=== PATIENT | male | born 1930 | race Caucasian/White ===

== ENCOUNTER 2016-12-26 08:19 | Inpatient (IN) ==
[2016-12-26 09:38] LABS: Basophils % 0.3 % (0.0-0.8); Eosinophils # 0.1 10*3/uL (0.0-0.87); Eosinophils % 1.3 % (0.00-10.9); Hematocrit 39.6 VOL% (42.0-52.0); Hemoglobin 13.9 GM/DL (14.0-18.0); Immature Granulocytes % 0.2 %; Immature Granulocytes Absolute 0.01 #; Lymphocytes # 1.9 10*3/uL (1.4-4.0); Mean Corpuscular HGB Conc 35.1 GM/DL (32-36); Mean Corpuscular Hemoglobin 33 PG (27-34); Mean Corpuscular Volume 92.5 FL (87-102); Mean Platelet Volume 9.7 FL (9.6-12.0); Monocytes # 0.5 10*3/uL (0.11-0.8); Monocytes % 8.6 % (1.7-12.7); Neutrophils # 3.6 10*3/uL (1.4-7.4); Neutrophils % 58.6 % (38.7-73.9); Platelet Count 229 T/CUMM (130-400); Red Blood Count 4.28 MC/CUMM (3.8-5.5); Red Cell Distribution Width 12.6 % (9.3-17.3); White Blood Count 6.1 T/CUMM (4-12)
--- NOTE | 2016-12-26 09:39 | XRay Report ---
XR chest 1V portable Indication: Abnormal breath sounds. Chest one view: Comparison 07/04/2015. The heart size and mediastinal contour are normal. The lungs and pleural spaces are clear. Bones are unremarkable. Impression: Negative chest. PROCEDURE INTERPRETED AT [facility] DEPARTMENT OF RADIOLOGY Final Report Signed by: Vel Schwab M.D.
[2016-12-26 09:54] LABS: Apearance,Urine CLEAR (Clear); Bacteria,Urine Occasional /HPF (Few); Bilirubin,Urine Negative (Negative); Blood, Urine Negative (Negative); Glucose,Urine (UA) Negative (Negative); Ketones,Urine Negative (Negative); Mucus,Urine Occasional /LPF (Occasional); Nitrite,Urine Negative (Negative); Protein,Urine Negative; RBC,Urine <1 /HPF (0-4); Squamous Epithelial Cell,Urine Occasional /HPF (0-10); Urine Color Yellow (Yellow); Urine Specific Gravity 1.019 (1.001-1.035); Urine Urobilinogen < 2.0 EU/DL (0.2-1.0); WBC,Urine <1 /HPF (0-6)
[2016-12-26 10:00] LABS: Albumin 4.1 G/DL (3.4-5.0); Bilirubin,Total 0.6 MG/DL (0.2-1.0); Calcium 9.7 MG/DL (8.5-10.1); Lactic Acid 1.2 MMOL/L (0.4-2.0); Osmolality,Calculated 288.3 MOS/KG (273-304); Potassium 3.5 MMOL/L (3.5-5.1); Total Protein 7.6 G/DL (6.4-8.3)
[2016-12-26] MEDS ORDERED: SODIUM CHLORIDE 0.9% 1,000 ML IV STA (10:01)
--- NOTE | 2016-12-26 11:14 | CT Report ---
CT abdomen pelvis wo con Indication: Abdominal pain. CT ABDOMEN AND PELVIS WITHOUT CONTRAST DLP: 323 mGy*cm. One or more of the following dose reduction techniques was used: Automated exposure control, adjustment of the mA and/or kV according the patient size, or use of iterative reconstruction techniques. Comparison: 03/17/2016. Technique: Axial noncontrast CT images of the abdomen and pelvis were obtained. Abdomen: No urolithiasis or obstructive uropathy of either kidney. Unenhanced renal parenchyma is unremarkable. Unenhanced liver, gallbladder, pancreas, adrenal glands and spleen are within normal limits. Calcified atheromatous disease is present. Normal heart size. Interstitial scarring of the lung bases noted. Mild bowel wall thickening of central small bowel is noted. No bowel obstruction. Stool and gas is shown the colon. No free fluid, free air or lymphadenopathy. Pelvis: Appendix not identified. No right lower quadrant inflammation. Blue catheter in the bladder noted. Prostate is enlarged measuring 63 mm diameter. Rectosigmoid colon is unremarkable. Left TY results in beam hardening artifact through the pelvis. No infiltrative bone lesions. Impression: 1. Mildly prominent small bowel left mid abdomen, likely gastroenteritis. No obstruction. 2. Bibasilar interstitial scarring. Calcified atheromatous disease. 3. Blue catheter. PROCEDURE INTERPRETED AT [facility] DEPARTMENT OF RADIOLOGY Final Report Signed by: Vel Schwab M.D.
--- NOTE | 2016-12-26 11:43 | Emergency Department Note ---
IBk Gwan, am scribing for, and in the presence of, Estefany De Leon DO 08:59 . IMoises Debra, DO, personally performed the services described in this documentation, ascribed by Tia Bourgeois in my presence, and it is both accurate and complete 957 . Arrival - Arrival Chief Complaint: Abdominal / Flank Pain Stated Complaint: abd pain ED Nursing Triage Note: per ems reports pt having abd pain and has not had a bm in 4-5 days. Mode of Arrival: Stretcher Limitations: No Limitations Source: Patient, Significant other (), Old Records Reviewed, RN Notes Reviewed Time Seen by Provider: 12/26/16 08:38 - History of Present Illness HPI Narrative: Patient is a 86 y/o male who presents to the ED via EMS with a c/o abd pain with an onset last night. Patient stated that patient has been awake all night c/o "hurting all over". She continued to note that she had a difficult time getting the patient to sit up or to respond. This prompted their visit to the ED for further evaluation. confirmed that patient has been to [facility] ED in [place] due to dehydration and UTI. Patient is followed by Dr. Peraza. denies that pt has had any fever or chills. During exam, patient was awake and responsive to verbal stimuli. No other problems/complaints reported in ED. Onset (ago): day(s) Consistency: constant Severity: moderate Allergies/Adverse Reactions: Allergies Allergy/AdvReac Type Severity Reaction Status Date / Time celecoxib [From Celebrex] AdvReac Nausea Verified 03/26/16 08:55 Home Medications: Home Medications Medication Instructions Recorded Confirmed Type Finasteride [Proscar] 5 mg PO DAILY 12/24/14 04/20/16 History Levothyroxine Tab [Synthroid Tab] 50 mcg PO DAILY 12/24/14 04/20/16 History Multivit-Min/FA/Lycopen/Lutein 1 each PO DAILY 12/24/14 04/20/16 History [Centrum Silver Tablet] Pantoprazole Tab [Protonix Tab] 40 mg PO DAILY 12/24/14 04/20/16 History Tamsulosin [Flomax] 0.4 mg PO DAILY 12/24/14 04/20/16 History hydroCHLOROthiazide 12.5 mg PO DAILY 12/24/14 04/20/16 History [Hydrochlorothiazide] Aspirin [Ecotrin] 325 mg PO DAILY 03/17/16 04/20/16 History Sulfameth/Trimeth 800-160 Tab 1 tablet PO BID #14 tablet 04/20/16 Rx [Bactrim Ds Tab] Review of System - Review of System 12 point system: reviewed and no additional remarkable complaints except as stated - Review of System Constitutional: Present: as per HPI. Absent: chills, fever Gastrointestinal: Present: as per HPI, abdominal pain. Absent: nausea, vomiting , diarrhea Musculoskeletal: Absent: arm pain, lower back pain, leg pain Medical,Surgical,& Family Hx - Medical History Cardio: History of: Hypertension No history of: Pacemaker Neurology: History of: Cerebrovascular Accident, TIA Endocrine: History of: Thyroid Disorder (Hypothryroid) Gastrointestinal: History of: GERD - Surgical History Orthopedic Surgeries: Surgical HX of;: Total Hip Replacement (left post fall) - Family History Family History: Reports;: Family Heart Disease - Social History Smoking Status: Never smoker Exam Vital Signs: Vital Signs Temperature 98.2 F 12/26/16 08:53 Pulse Rate 84 12/26/16 10:15 Respiratory Rate 18 12/26/16 10:15 Blood Pressure 160/92 12/26/16 10:15 O2 Sat by Pulse Oximetry 97 12/26/16 10:15 - General General appearance: alert, in no apparent distress - Head Head exam: Present: atraumatic, normocephalic - Eye Eye exam: Present: normal appearance, PERRL - ENT ENT exam: Present: normal oropharynx, mucous membranes dry, TM's normal bilaterally - Neck Neck exam: Present: full ROM, trachea midline. Absent: tenderness - Chest Chest inspection: Present: symmetric chest wall rise. Absent: tenderness - Respiratory Respiratory exam: Present: normal lung sounds bilaterally. Absent: respiratory distress - Cardiovascular Cardiovascular exam: Present: regular rate, normal rhythm, normal heart sounds. Absent: murmur - Abdominal Exam Abdominal exam: Present: soft, tenderness (diffusely tender), rebound (mild rebound) - Extremities Exam Extremities exam: Present: full ROM. Absent: tenderness - Back Exam Back exam: Present: full ROM. Absent: tenderness - Neurological Exam Neurological exam: Present: alert - Skin Skin exam: Present: warm, dry, intact Course Course Narrative: spoke with Dr King who will see pt in hospital and agrees to admission to DR Peraza. pt is stable at this time and has no complaints. son is in room and states that he had a hard time with motor strength of his left arm several days ago. has no deficits at this time but will get ct head before pt goes to room. pt is pain free unless his abdomen is touched. Results - Labs CBC & BMP: 12/26/16 09:29 12/26/16 09:29 Lab Results: I have reviewed the patients labs Labs: Laboratory Tests 12/26/16 12/26/16 12/26/16 09:29 09:29 09:29 WBC 6.1 RBC 4.28 Hgb 13.9 L Hct 39.6 L Plt Count 229 Sodium 141 Potassium 3.5 Chloride 110 H BUN 36 H Creatinine 1.60 H BUN/Creatinine Ratio 22.00 H Urine pH 5.0 Ur Specific [place] 1.019 Urine Urobilinogen < 2.0 H Urine RBC <1 Urine WBC <1 - Diagnostic Findings Procedure: Chest x-ray: report reviewed by me (Negative Chest) Disposition Clinical Impression: Abdominal pain Case discussed with: patient, patient's family Disposition: Still a Patient Condition: Stable Time of Disposition: 11:35
[2016-12-26] MEDS ORDERED: ONDANSETRON 4 MG/2 ML VIAL IV PRN (11:44)
--- NOTE | 2016-12-26 12:27 | CT Report ---
CT head/brain wo con Indication: Confusion. CT BRAIN WITHOUT CONTRAST DLP: 998 mGy*cm. One or more of the following dose reduction techniques was used: Automated exposure control, adjustment of the mA and/or kV according the patient size, or use of iterative reconstruction techniques. Comparison: 07/04/2015. Date of admission: 12/26/2016. Technique: Axial noncontrast CT images of the brain were obtained. Findings: No acute hemorrhage, mass or mass effect. Small left basal ganglia hemorrhage on the prior examination has resolved. Generalized atrophy and patchy periventricular white matter hypodensity is present throughout both convexities. Cortical marroquin-white junction and structures of the basal ganglia are well-defined. No bone lesions are shown. Internal auditory canals are symmetric. Visualized sinuses and mastoid air cells are clear. Impression: No acute intracranial pathology. 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 PROCEDURE INTERPRETED AT [facility] DEPARTMENT OF RADIOLOGY Final Report Signed by: Vel Schwab M.D.
--- NOTE | 2016-12-26 13:27 | General Surgery Consult Note ---
Assessment and Plan - Time spent with patient Time spent with patient: Greater than 30 minutes (1) Abdominal pain Status: Acute Assessment and plan: The etiology of his pain is unclear. I do not on exam or history or on imaging really see an acute surgical problem. His CT scan is limited by the inability to give IV contrast because of his dehydration. In looking at the films he does not have a large amount of calcification involving his mesenteric vessels however. He does not have an elevated lactic acid level. He does not appear particularly ill and is not tachycardic. I would recommend resuscitation and rehydration and I will follow along with you. The family has expressively stated that they do not want surgical intervention even if it becomes necessary. I have explained that at this point I am not looking at surgery will be trying to help see if we can come up with a cause for his abdominal pain and general decline. If a surgical problem is found then we would certainly discuss this. Current Visit: Yes Qualifiers: Abdominal location: lower abdomen, unspecified Qualified Code(s): R10.30 - Lower abdominal pain, unspecified History of Present Illness Chief complaint: Abdominal pain History of present illness: Mr. Dyer is a 86 year old male Who for a couple of weeks his had vague poorly localized abdominal pain. His family says that his symptoms really go back several months with frequent urinary tract infections and dehydration resulting in multiple visits to the [facility] emergency room. He is not a good historian and the family says he is more confused today than usual. He puts his finger when asked where his abdomen hurts right over the suprapubic area. He denies dysuria. They have not noticed fever or chills. The pain they say is moderate in severity and intermittent and has been going on for a couple of weeks. He has not had nausea or vomiting and he actually ate normally yesterday. He says that overall his appetite is decreased over the last several months. They report less urine output than usual. Home Medications Medication Instructions Recorded Confirmed Type Finasteride [Proscar] 5 mg PO DAILY 12/24/14 12/26/16 History Levothyroxine Tab [Synthroid Tab] 50 mcg PO DAILY 12/24/14 12/26/16 History Multivit-Min/FA/Lycopen/Lutein 1 each PO DAILY 12/24/14 12/26/16 History [Centrum Silver Tablet] Pantoprazole Tab [Protonix Tab] 40 mg PO DAILY 12/24/14 12/26/16 History Tamsulosin [Flomax] 0.4 mg PO DAILY 12/24/14 04/20/16 History hydroCHLOROthiazide 12.5 mg PO DAILY 12/24/14 12/26/16 History [Hydrochlorothiazide] Aspirin [Ecotrin] 325 mg PO DAILY 03/17/16 12/26/16 History Sulfameth/Trimeth 800-160 Tab 1 tablet PO BID #14 tablet 04/20/16 Rx [Bactrim Ds Tab] Allergies Allergy/AdvReac Type Severity Reaction Status Date / Time celecoxib [From Celebrex] AdvReac Nausea Verified 03/26/16 08:55 Medical,Surgical,& Family Hx - Medical History Cardio: History of: Hypertension No history of: Pacemaker Neurology: History of: Cerebrovascular Accident, TIA Endocrine: History of: Thyroid Disorder (Hypothryroid) Gastrointestinal: History of: GERD - Surgical History Abdominal Surgeries: Surgical HX of: Hernia Repair Orthopedic Surgeries: Surgical HX of;: Total Hip Replacement (left post fall) - Family History Family History: Reports;: Family Heart Disease - Social History Smoking Status: Never smoker Frequency of Alcohol Use: None - Constitutional Constitutional: Present: anorexia, weight loss. Absent: chills, fever(s) - EENT Nose, mouth and throat: Absent: hoarseness - Cardiovascular Cardiovascular: Absent: chest pain at rest, chest pain with activity, dyspnea, dyspnea on exertion, syncope - Respiratory Respiratory: Absent: dyspnea, hemoptysis, dyspnea on exertion - Gastrointestinal Gastrointestinal: Present: abdominal pain. Absent: bloating, coffee ground emesis, cramping, hematemesis, hematochezia, melena, nausea, vomiting, jaundice - Genitourinary Genitourinary: Present: dysuria. Absent: hematuria - Musculoskeletal Musculoskeletal: Present: back pain - Neurological Neurological: Present: memory loss. Absent: focal weakness, syncope - Endocrine Endocrine: Absent: polyuria Hematologic/Lymphatic: Absent: easy bleeding, easy bruising Exam - Constitutional Vitals: Period Temp Pulse Resp BP Sys/Jeter Pulse Ox Last 24 Hr 98.2 F-98.2 F 76-88 18-20 129-167/80-98 96-98 General appearance: no acute distress - Head Head exam: Present: normocephalic - Eye Eye exam: Absent: scleral icterus - ENT Mouth exam: Present: normal voice - Neck Neck exam: Present: trachea midline. Absent: lymphadenopathy, tenderness, thyromegaly - Respiratory Respiratory exam: Present: clear to auscultation bilaterally. Absent: accessory muscle use - Cardiovascular Cardiovascular exam: Present: RRR - GI/Abdominal GI/Abdominal exam: Present: normal bowel sounds, tenderness (Mild in the suprapubic area), soft. Absent: distended, guarding, mass, Sierra's sign, rebound - Neurological Exam Neurological exam: Present: alert. Absent: oriented X3, motor sensory deficit Speech: Present: normal - Skin Skin exam: Present: normal color Results - Labs CBC & BMP: 12/26/16 09:29 12/26/16 09:29 Lab Results: I have reviewed the past 24 hour labs - Diagnostic Findings Procedure: CT Abdomen and Pelvis: image reviewed by me, report reviewed by me, CT: report reviewed by me
[2016-12-26] MEDS: MORPHINE 2 MG/1 ML SYRINGE IV PRN (14:04)
--- NOTE | 2016-12-26 17:39 | Family Practice History&Phys ---
Assessment and Plan (1) Failure to thrive Status: Acute Assessment and plan: 12/26/2016: Patient's intake certainly sounds like it is a problem for him. Family states he is eating but very little. His nutritional depletion may be contributing to his present state. Current Visit: Yes (2) Dementia Status: Acute Assessment and plan: 12/26/2016: Patient's altered mental status is probably multifactorial. Current Visit: Yes (3) Abdominal pain Status: Acute Assessment and plan: 12/26/2016: Laboratory studies and CT were unremarkable. Surgical consultation was also obtained. Period of observation is warranted. Current Visit: Yes Qualifiers: Abdominal location: lower abdomen, unspecified Qualified Code(s): R10.30 - Lower abdominal pain, unspecified History of Present Illness Chief complaint: Abdominal pain and back pain History of present illness: Mr. Dyer is a 86 year old male Patient is a 86-year-old white male who according the family is been in a steady state of decline now for several weeks to months. He is not eating well and is not getting up and getting around. His is his primary caregiver when she certainly been very busy trying to take care of him. Patient states he has severe back pain and also complains of lower abdominal discomfort. Patient did have a CT scan of the abdomen and laboratory studies in the emergency room all of which revealed no significant abnormality. Patient complains bitterly of back pain with any movement. The views of his lumbosacral spine on the CT scan revealed no significant abnormality. Patient has had prior CVA involving his left side and the family has noticed little neglect to his left since he has gotten ill. Has not had fever, chills, nausea or vomiting. His appetite is declining. According to family he is just getting more and more feeble with each passing day. Home Medications Medication Instructions Recorded Confirmed Type Finasteride [Proscar] 5 mg PO DAILY 12/24/14 12/26/16 History Levothyroxine Tab [Synthroid Tab] 50 mcg PO DAILY 12/24/14 12/26/16 History Multivit-Min/FA/Lycopen/Lutein 1 each PO DAILY 12/24/14 12/26/16 History [Centrum Silver Tablet] Pantoprazole Tab [Protonix Tab] 40 mg PO DAILY 12/24/14 12/26/16 History hydroCHLOROthiazide 12.5 mg PO DAILY 12/24/14 12/26/16 History [Hydrochlorothiazide] Aspirin [Ecotrin] 325 mg PO DAILY 03/17/16 12/26/16 History Allergies Allergy/AdvReac Type Severity Reaction Status Date / Time celecoxib [From Celebrex] AdvReac Nausea Verified 03/26/16 08:55 - Constitutional Constitutional: Present: anorexia, fatigue, lethargy, malaise, weakness. Absent : night sweats - EENT Eyes: Absent: blurry vision, loss of vision Ears: Absent: decreased hearing, ear pain Nose, mouth and throat: Absent: hoarseness, sinus pressure, sore throat - Cardiovascular Cardiovascular: Absent: chest pain at rest, chest pain with activity, dyspnea on exertion, orthopnea, palpitations, PND - Respiratory Respiratory: Absent: cough, dyspnea, dyspnea on exertion - Gastrointestinal Gastrointestinal: Present: abdominal pain. Absent: diarrhea, hematemesis, hematochezia, melena, nausea, vomiting - Genitourinary Genitourinary: Present: difficulty urinating. Absent: flank pain, hematuria, urinary frequency - Musculoskeletal Musculoskeletal: Present: as per HPI, arthralgias, back pain - Neurological Neurological: Present: confusion. Absent: focal weakness, numbness, paresthesias - Psychiatric Psychiatric: Present: confusion. Absent: anxiety, depression - Endocrine Endocrine: Present: fatigue. Absent: polydipsia, polyphagia - Hematologic/Lymphatic Hematologic/Lymphatic: Absent: easy bleeding, easy bruising Medical,Surgical,& Family Hx - Medical History Cardio: History of: Hypertension No history of: Pacemaker Neurology: History of: Cerebrovascular Accident, TIA Endocrine: History of: Thyroid Disorder (Hypothryroid) Gastrointestinal: History of: GERD - Surgical History Abdominal Surgeries: Surgical HX of: Hernia Repair Orthopedic Surgeries: Surgical HX of;: Total Hip Replacement (left post fall) - Family History Family History: Reports;: Family Heart Disease, Additional Family History ( Family history is noted for longevity) - Social History Smoking Status: Never smoker Frequency of Alcohol Use: None Exam - Constitutional Vitals: Period Temp Pulse Resp BP Sys/Jeter Pulse Ox Last 24 Hr 97.5 F-98.2 F 76-88 18-96 129-167/80-98 96-100 Exam: General: Objective patient is a well-developed white male who is unable to provide any history. He has a pained look on his face and though he is awake and follows commands is unable to provide any insight into his present problem. HEENT: Pupils equal and reactive to light. Patent nares and airway Neck: No meningismus, adenopathy, thyromegaly. There are no auscultated carotid bruits. Cardiovascular: Regular rhythm. No murmurs or gallops Chest: Clear to auscultation without rales rhonchi wheezes. Abdomen: Soft nontender to palpation No masses, rebound, guarding or tenderness. Neuro: Cranial nerves intact patient's noted to have generalized weakness and could not pick either leg up off the bed. Dermatologic: No evidence of abnormal lesions or masses. Musculoskeletal: There is no joint swelling or tenderness or deformity. Extremities: There is no calf swelling or tenderness. Muscle atrophy is evident. Results - Labs CBC & BMP: 12/26/16 09:29 12/26/16 09:29 Lab Results: I have reviewed the past 24 hour labs - Diagnostic Findings Procedure: CT Abdomen and Pelvis: report reviewed by me (No acute abnormality is evident.)
[2016-12-26] MEDS: SODIUM CHLORIDE 0.9% 1,000 ML IV SCH (17:53)
[2016-12-26] MEDS: DOCUSATE SODIUM 100 MG CAPSULE PO SCH (21:58)
[2016-12-27] MEDS: SODIUM CHLORIDE 0.9% 1,000 ML IV SCH (00:23)
[2016-12-27] MEDS: MORPHINE 2 MG/1 ML SYRINGE IV PRN ×2 (00:27→08:30)
[2016-12-27 05:48] LABS: Basophils % 0.3 % (0.0-0.8); Eosinophils # 0.1 10*3/uL (0.0-0.87); Eosinophils % 1.2 % (0.00-10.9); Hematocrit 36.2 VOL% (42.0-52.0); Hemoglobin 12.6 GM/DL (14.0-18.0); Immature Granulocytes % 0.4 %; Immature Granulocytes Absolute 0.03 #; Lymphocytes # 1.5 10*3/uL (1.4-4.0); Lymphocytes % 20.3 % (21.2-54.2); Mean Corpuscular HGB Conc 34.8 GM/DL (32-36); Mean Corpuscular Hemoglobin 32 PG (27-34); Mean Corpuscular Volume 92.6 FL (87-102); Mean Platelet Volume 10.8 FL (9.6-12.0); Monocytes # 0.7 10*3/uL (0.11-0.8); Monocytes % 9.5 % (1.7-12.7); Neutrophils # 5.1 10*3/uL (1.4-7.4); Neutrophils % 68.3 % (38.7-73.9); Platelet Count 195 T/CUMM (130-400); Red Blood Count 3.91 MC/CUMM (3.8-5.5); Red Cell Distribution Width 12.6 % (9.3-17.3); White Blood Count 7.5 T/CUMM (4-12)
[2016-12-27 06:26] LABS: Albumin 3.4 G/DL (3.4-5.0); Bilirubin,Total 1.4 MG/DL (0.2-1.0); Calcium 8.7 MG/DL (8.5-10.1); Osmolality,Calculated 283.3 MOS/KG (273-304); Potassium 4.1 MMOL/L (3.5-5.1); Total Protein 6.5 G/DL (6.4-8.3)
--- NOTE | 2016-12-27 07:17 | Family Practice Progress Note ---
Family Practice - PN: Subj Interval history: Patient had a pretty good night according to his son Brandon. He tried to get up several times last night. He basically hurts all over and note his sed rate is elevated at 52. His CRP is normal so I do not think he has an infectious etiology of his myalgias. I will give him a trial steroids and see if that helps his back pain. He basically hurts all over and has pain even when I shake his hand. He may have polymyalgia rheumatica. I reviewed his CT of the abdomen yesterday and views of his lumbosacral spine are unremarkable. Exam (Progress Note) - Constitutional Vitals: Period Temp Pulse Resp BP Sys/Jeter Pulse Ox Last 24 Hr 97.1 F-98.2 F 76-94 18-96 129-167/69-98 93-100 Exam: Objective well-developed gentleman is awake and alert is little more responsive this morning than yesterday. He grimaces when I shake his hand with any movement whatsoever. Patient ate well yesterday according to his son I think we can reduce his IV fluids. His BUN is down to 22. Cardiovascular: Heart rates regular without murmurs. Respiratory: Lungs clear bilaterally. Abdomen: Abdomen is diffusely tender directly but no rebound guarding were noted. Results - Labs CBC & BMP: 12/27/16 04:58 12/27/16 04:58 Lab Results: I have reviewed the past 24 hour labs Assessment and Plan (1) Failure to thrive Status: Acute Assessment and plan: 12/26/2016: Patient's intake certainly sounds like it is a problem for him. Family states he is eating but very little. His nutritional depletion may be contributing to his present state. 12/27/2016: Patient's intake is certainly improved according to his son. Current Visit: Yes (2) Dementia Status: Acute Assessment and plan: 12/26/2016: Patient's altered mental status is probably multifactorial. 12/27/2016: There is no change. Current Visit: Yes (3) Abdominal pain Status: Acute Assessment and plan: 12/26/2016: Laboratory studies and CT were unremarkable. Surgical consultation was also obtained. Period of observation is warranted. 12/27/2016: Patient continues to have diffuse abdominal tenderness. His vital signs are stable he certainly has no clinical evidence of ischemic bowel. Current Visit: Yes Qualifiers: Abdominal location: lower abdomen, unspecified Qualified Code(s): R10.30 - Lower abdominal pain, unspecified
[2016-12-27] MEDS: ACETAMINOPHEN 325 MG TABLET PO PRN (08:30)
[2016-12-27] MEDS ORDERED: PANTOPRAZOLE 40 MG TABLET PO SCH (09:00)
[2016-12-27] MEDS: DOCUSATE SODIUM 100 MG CAPSULE PO SCH ×2 (10:48→21:23)
[2016-12-27] MEDS: ASPIRIN EC 325 MG TABLET PO SCH (10:48)
[2016-12-27] MEDS: MULTIVITAMIN (CENTRUM) TABLET PO SCH (10:48)
[2016-12-27] MEDS: PANTOPRAZOLE 40 MG TABLET PO SCH (10:48)
[2016-12-27] MEDS: LEVOTHYROXINE 50 MCG TABLET PO SCH (10:48)
[2016-12-27] MEDS: predniSONE 20 MG TABLET PO SCH (10:48)
[2016-12-27] MEDS: FINASTERIDE 5 MG TABLET PO SCH (10:48)
[2016-12-27] MEDS: SODIUM CHLORIDE 0.45% 1,000 ML IV SCH (10:48)
[2016-12-28] MEDS: SODIUM CHLORIDE 0.45% 1,000 ML IV SCH (04:34)
--- NOTE | 2016-12-28 08:08 | Family Practice Progress Note ---
Family Practice - PN: Subj Interval history: Patient is a 86-year-old white male well-known to me admitted with progressive decline. 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 He is progressively gotten weaker was admitted to the emergency room with severe diffuse pain. He has total body pain. He is minimally responsive. Does recognize me this a.m. will not answer questions. Head CT on admission revealed no acute changes but very suspicious that he has had a probably acute CVA. He has not been eating or drinking at present. Family does not want PEG tube placement. He is presently listed as a full code but I will discuss this with family. Lung la are clear to auscultation abdomen is soft but diffusely tender .abdominal CT and other studies were stable. Prognosis is very poor. Probably needs assisted versus hospice Exam (Progress Note) - Constitutional Vitals: Period Temp Pulse Resp BP Sys/Jeter Pulse Ox Last 24 Hr 97.2 F-99.1 F 82-106 18-24 143-175/77-99 93-96 Results - Labs CBC & BMP: 12/27/16 04:58 12/27/16 04:58
--- NOTE | 2016-12-28 08:13 | Physician Query Form ---
CLICK EDIT DOCUMENT TO SELECT QUERY ANSWER --> OK --> SIGN Jazmine Valentine RN, CCDS Certified Clinical Exceptional Children Teacher Assistant W) [phone] (f) [phone] [email or web address] PROVIDERS: Make your selection(s) from the choices in EACH section by typing an "x" and enter comments in the comment section. Please use your independent medical judgment in providing your response. This request does not imply that any particular answer is desired or expected. CLINICAL INDICATORS: (Providers should not edit this section) The medical record indicates that the patient was admitted with abd pain, dehydration (hx), Creatinine of 1.60 on admission that has decreased to 1.20 on the 2, GFR of 46 on the that has increased to 66 on the and the patient was given a 1,000 cc bolus in the ER/ then started on IVF's. Clarify which of the following most accurately represents the patient's renal status: (x ) Acute kidney injury (non-traumatic) ( ) Acute renal failure ( ) Acute renal failure with underlying Chronic Kidney Disease (CKD) - please provide stage below ( ) Acute renal failure with pathological renal lesion ( ) Acute renal failure with necrosis ( ) tubular ( ) medullary ( ) cortical ( ) CKD - please provide stage below ( ) End Stage Renal Disease ( ) Acute interstitial nephritis ( ) Hepatorenal syndrome ( ) Other, please specify: ( ) Clinically unable to determine Chronic Kidney Disease Stages Source: National Kidney Disease Foundation ( ) Stage I (eGFR > or = 90) ( ) Stage II (eGFR 60 - 89) ( ) Stage III (eGFR 30 - 59) ( ) Stage IV (eGFR 15 - 29) ( ) Stage V (eGFR < 15 or dialysis) COMMENTS: PLEASE ALSO DOCUMENT RESPONSE IN PROGRESS NOTES AND/OR DISCHARGE SUMMARY Use of terms such as suspected, likely, or probable (associated with a specific diagnosis that is being evaluated, monitored, or treated as if it exists) are acceptable and can be restated in the discharge summary if not ruled out. MTDD
[2016-12-28] MEDS: FINASTERIDE 5 MG TABLET PO SCH (08:32)
[2016-12-28] MEDS: ASPIRIN EC 325 MG TABLET PO SCH (08:32)
[2016-12-28] MEDS: MULTIVITAMIN (CENTRUM) TABLET PO SCH (08:32)
[2016-12-28] MEDS: LEVOTHYROXINE 50 MCG TABLET PO SCH (08:32)
[2016-12-28] MEDS: predniSONE 20 MG TABLET PO SCH (08:32)
[2016-12-28] MEDS: DOCUSATE SODIUM 100 MG CAPSULE PO SCH ×2 (08:32→21:26)
[2016-12-28] MEDS: PANTOPRAZOLE 40 MG TABLET PO SCH (08:32)
[2016-12-28] MEDS: ACETAMINOPHEN 325 MG TABLET PO PRN (21:26)
[2016-12-28] MEDS: MORPHINE 2 MG/1 ML SYRINGE IV PRN (23:44)
[2016-12-29] MEDS: SODIUM CHLORIDE 0.45% 1,000 ML IV SCH (05:40)
[2016-12-29 07:24] LABS: Basophils % 0.1 % (0.0-0.8); Eosinophils % 0.1 % (0.00-10.9); Hematocrit 39.1 VOL% (42.0-52.0); Hemoglobin 14.3 GM/DL (14.0-18.0); Immature Granulocytes % 0.5 %; Immature Granulocytes Absolute 0.05 #; Lymphocytes # 1.1 10*3/uL (1.4-4.0); Lymphocytes % 10.6 % (21.2-54.2); Mean Corpuscular HGB Conc 36.6 GM/DL (32-36); Mean Corpuscular Hemoglobin 33 PG (27-34); Mean Corpuscular Volume 89.1 FL (87-102); Mean Platelet Volume 10.6 FL (9.6-12.0); Monocytes # 1.3 10*3/uL (0.11-0.8); Monocytes % 11.9 % (1.7-12.7); Neutrophils # 8.3 10*3/uL (1.4-7.4); Neutrophils % 76.8 % (38.7-73.9); Platelet Count 208 T/CUMM (130-400); Red Blood Count 4.39 MC/CUMM (3.8-5.5); Red Cell Distribution Width 12.2 % (9.3-17.3); White Blood Count 10.8 T/CUMM (4-12)
[2016-12-29 08:07] LABS: Albumin 3.2 G/DL (3.4-5.0); Calcium 9.3 MG/DL (8.5-10.1); Osmolality,Calculated 274.1 MOS/KG (273-304); Potassium 4.2 MMOL/L (3.5-5.1); Total Protein 6.7 G/DL (6.4-8.3)
--- NOTE | 2016-12-29 08:10 | Family Practice Progress Note ---
Family Practice - PN: Subj Interval history: Patient is a 86-year-old white male well-known to me admitted with progressive decline. 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 He is progressively gotten weaker was admitted to the emergency room with severe diffuse pain. He has total body pain. He is minimally responsive. Does recognize me this a.m. will not answer questions. Head CT on admission revealed no acute changes but very suspicious that he has had a probably acute CVA. He has not been eating or drinking at present. Family does not want PEG tube placement. He is presently listed as a full code but I will discuss this with family. Lung la are clear to auscultation abdomen is soft but diffusely tender .abdominal CT and other studies were stable. Prognosis is very poor. Probably needs long term versus hospice 12/29/16 -patient continues to slowly decline. He is minimally responsive today. Family has committed to do not placed feeding tube. There have been family meeting today about the no CODE STATUS. I spent significant time explaining to and family members. His labs and CTs studies are stable. Strongly recommended he make him a DO NOT RESUSCITATE and either home with hospice or long term placement. They will discuss this with family today and make decision. We will otherwise continue present treatment. Exam (Progress Note) - Constitutional Vitals: Period Temp Pulse Resp BP Sys/Jeter Pulse Ox Last 24 Hr 96.2 F-98.7 F 92-100 18-20 140-212/87-102 94-97 Results - Labs CBC & BMP: 12/29/16 06:35 12/27/16 04:58
[2016-12-29] MEDS: LEVOTHYROXINE 50 MCG TABLET PO SCH (10:13)
[2016-12-29] MEDS: FINASTERIDE 5 MG TABLET PO SCH (10:13)
[2016-12-29] MEDS: DOCUSATE SODIUM 100 MG CAPSULE PO SCH ×2 (10:13→20:43)
[2016-12-29] MEDS: ASPIRIN EC 325 MG TABLET PO SCH (10:13)
[2016-12-29] MEDS: MULTIVITAMIN (CENTRUM) TABLET PO SCH (10:14)
[2016-12-29] MEDS: predniSONE 20 MG TABLET PO SCH (10:14)
[2016-12-29] MEDS: PANTOPRAZOLE 40 MG TABLET PO SCH (10:14)
--- NOTE | 2016-12-29 12:13 | General Surgery Progress Note ---
Assessment and Plan (1) Abdominal pain Status: Acute Assessment and plan: The etiology of his pain is unclear. I do not on exam or history or on imaging really see an acute surgical problem. His CT scan is limited by the inability to give IV contrast because of his dehydration. In looking at the films he does not have a large amount of calcification involving his mesenteric vessels however. He does not have an elevated lactic acid level. He does not appear particularly ill and is not tachycardic. I would recommend resuscitation and rehydration and I will follow along with you. The family has expressively stated that they do not want surgical intervention even if it becomes necessary. I have explained that at this point I am not looking at surgery will be trying to help see if we can come up with a cause for his abdominal pain and general decline. If a surgical problem is found then we would certainly discuss this. 12/29: His exam is very difficult and he is very difficult to assess chronically because of his mental status. This was also the case at admission. Actually saw the patient yesterday but did not put in a note. He will moan anywhere that you touch him and his abdomen really seems no different. I discussed the case with the family and also with Dr. Peraza. I do not have clear evidence of an intra-abdominal process that we could address to change his clinical situation. I think that he would be very high risk for a exploratory surgery and also this would be very unlikely to be revealing of any reversible pathology. The family is not interested in pursuing surgery and I think that this is a good choice. I discussed this with Dr. Peraza and he agrees. I will sign off the case for now but will be happy to reassess in the future if needed. His prognosis appears very poor. Current Visit: Yes Qualifiers: Abdominal location: lower abdomen, unspecified Qualified Code(s): R10.30 - Lower abdominal pain, unspecified Subjective Patient reports: Present: no new complaints Exam - Constitutional Vitals: Period Temp Pulse Resp BP Sys/Jeter Pulse Ox Last 24 Hr 96.2 F-98.7 F 92-102 18-20 114-212/52-102 94-97 General appearance: no acute distress - GI/Abdominal GI/Abdominal exam: Present: soft. Absent: distended, tenderness, rebound - Neurological Exam Neurological exam: Present: altered. Absent: alert, oriented X3 Results - Labs CBC & BMP: 12/29/16 06:35 12/29/16 06:35 Lab Results: I have reviewed the past 24 hour labs
[2016-12-29] MEDS ORDERED: ZINC OXIDE PASTE 113 GM TUBE TOP PRN (13:13)
[2016-12-29] MEDS: ACETAMINOPHEN 325 MG TABLET PO PRN (20:43)
[2016-12-30] MEDS: SODIUM CHLORIDE 0.45% 1,000 ML IV SCH ×2 (00:45→22:15)
[2016-12-30 07:21] LABS: Basophils % 0.1 % (0.0-0.8); Hematocrit 37.1 VOL% (42.0-52.0); Hemoglobin 13.3 GM/DL (14.0-18.0); Immature Granulocytes % 0.5 %; Immature Granulocytes Absolute 0.04 #; Lymphocytes # 1.4 10*3/uL (1.4-4.0); Lymphocytes % 18.3 % (21.2-54.2); Mean Corpuscular HGB Conc 35.8 GM/DL (32-36); Mean Corpuscular Hemoglobin 32 PG (27-34); Mean Corpuscular Volume 89.6 FL (87-102); Mean Platelet Volume 10.9 FL (9.6-12.0); Monocytes # 0.9 10*3/uL (0.11-0.8); Monocytes % 11.1 % (1.7-12.7); Neutrophils # 5.4 10*3/uL (1.4-7.4); Platelet Count 218 T/CUMM (130-400); Red Blood Count 4.14 MC/CUMM (3.8-5.5); Red Cell Distribution Width 12.3 % (9.3-17.3); White Blood Count 7.7 T/CUMM (4-12)
[2016-12-30 07:43] LABS: Calcium 9.4 MG/DL (8.5-10.1); Osmolality,Calculated 275.2 MOS/KG (273-304); Potassium 4.2 MMOL/L (3.5-5.1)
--- NOTE | 2016-12-30 08:19 | Family Practice Progress Note ---
Family Practice - PN: Subj Interval history: Patient is a 86-year-old white male well-known to me admitted with progressive decline. 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 He is progressively gotten weaker was admitted to the emergency room with severe diffuse pain. He has total body pain. He is minimally responsive. Does recognize me this a.m. will not answer questions. Head CT on admission revealed no acute changes but very suspicious that he has had a probably acute CVA. He has not been eating or drinking at present. Family does not want PEG tube placement. He is presently listed as a full code but I will discuss this with family. Lung la are clear to auscultation abdomen is soft but diffusely tender .abdominal CT and other studies were stable. Prognosis is very poor. Probably needs halfway versus hospice 12/29/16 -patient continues to slowly decline. He is minimally responsive today. Family has committed to do not placed feeding tube. There have been family meeting today about the no CODE STATUS. I spent significant time explaining to and family members. His labs and CTs studies are stable. Strongly recommended he make him a DO NOT RESUSCITATE and either home with hospice or halfway placement. They will discuss this with family today and make decision. We will otherwise continue present treatment. 12/30/16 -patient is more alert this a.m. Still not eating or drinking. Family is unable to make decision about no CODE STATUS. Spent significant time again with son explaining that unless they place a feeding tube that Mr. Holley is going to continue to decline. Family does not want feeding tube and I agree with this is overall progressive decline. I again spent time expressing that he needs to go to hospice or long-term care and then his prognosis is extremely poor. Son states she understands and again will talk to family members today. Will get social welfare research worker involved with discharge. Exam (Progress Note) - Constitutional Vitals: Period Temp Pulse Resp BP Sys/Jeter Pulse Ox Last 24 Hr 96.9 F-97.1 F 86-94 18-20 113-145/52-80 93-96 Results - Labs CBC & BMP: 12/30/16 05:50 12/30/16 05:50
[2016-12-30] MEDS: predniSONE 20 MG TABLET PO SCH (09:56)
[2016-12-30] MEDS: PANTOPRAZOLE 40 MG TABLET PO SCH (09:56)
[2016-12-30] MEDS: DOCUSATE SODIUM 100 MG CAPSULE PO SCH ×2 (09:56→22:35)
[2016-12-30] MEDS: MULTIVITAMIN (CENTRUM) TABLET PO SCH (09:56)
[2016-12-30] MEDS: ASPIRIN EC 325 MG TABLET PO SCH (09:56)
[2016-12-30] MEDS: LEVOTHYROXINE 50 MCG TABLET PO SCH (09:56)
[2016-12-30] MEDS: FINASTERIDE 5 MG TABLET PO SCH (09:56)
--- NOTE | 2016-12-30 12:46 | Physician Query Form ---
CLICK EDIT DOCUMENT TO SELECT QUERY ANSWER --> OK --> SIGN Jazmine Valentine RN, CCDS Certified Clinical Metal Products Fabricator Assembler W) [phone] (f) [phone] [email or web address] PROVIDERS: Make your selection(s) from the choices in EACH section by typing an "x" and enter comments in the comment section. Please use your independent medical judgment in providing your response. This request does not imply that any particular answer is desired or expected. CLINICAL INDICATORS: (Providers should not edit this section) The below diagnosis was documented in the record, but is not consistently noted in subsequent documentation. "Head CT on admission revealed no acute changes but very suspicious that he has had a probably acute CVA" Diagnosis: Probably acute CVA Please clarify the following: ( ) The above diagnosis was monitored, evaluated, and/or treated and is a confirmed diagnosis ( ) The above diagnosis was ruled out ( ) The above diagnosis is still a likely, suspected, probable diagnosis ( ) Other, please specify: ( ) Clinically unable to determine COMMENTS: PLEASE ALSO DOCUMENT RESPONSE IN PROGRESS NOTES AND/OR DISCHARGE SUMMARY Use of terms such as suspected, likely, or probable (associated with a specific diagnosis that is being evaluated, monitored, or treated as if it exists) are acceptable and can be restated in the discharge summary if not ruled out. MTDD
[2016-12-31] MEDS: ACETAMINOPHEN 325 MG TABLET PO PRN (02:47)
[2016-12-31 06:09] LABS: Basophils % 0.1 % (0.0-0.8); Eosinophils % 0.1 % (0.00-10.9); Hematocrit 33.4 VOL% (42.0-52.0); Hemoglobin 12.1 GM/DL (14.0-18.0); Immature Granulocytes % 0.7 %; Immature Granulocytes Absolute 0.05 #; Lymphocytes # 1.2 10*3/uL (1.4-4.0); Lymphocytes % 16.9 % (21.2-54.2); Mean Corpuscular HGB Conc 36.2 GM/DL (32-36); Mean Corpuscular Hemoglobin 33 PG (27-34); Mean Corpuscular Volume 89.8 FL (87-102); Mean Platelet Volume 10.5 FL (9.6-12.0); Monocytes # 0.8 10*3/uL (0.11-0.8); Monocytes % 11.6 % (1.7-12.7); Neutrophils # 5.1 10*3/uL (1.4-7.4); Neutrophils % 70.6 % (38.7-73.9); Platelet Count 206 T/CUMM (130-400); Red Blood Count 3.72 MC/CUMM (3.8-5.5); Red Cell Distribution Width 12.2 % (9.3-17.3); White Blood Count 7.2 T/CUMM (4-12)
[2016-12-31 06:41] LABS: Calcium 9.1 MG/DL (8.5-10.1); Osmolality,Calculated 280.1 MOS/KG (273-304); Potassium 3.9 MMOL/L (3.5-5.1)
--- NOTE | 2016-12-31 07:19 | Physician Query Form ---
CLICK EDIT DOCUMENT TO SELECT QUERY ANSWER --> OK --> SIGN Jazmine Valentine RN, CCDS Certified Clinical Coating Mixer Tender W) [phone] (f) [phone] [email or web address] PROVIDERS: Make your selection(s) from the choices in EACH section by typing an "x" and enter comments in the comment section. Please use your independent medical judgment in providing your response. This request does not imply that any particular answer is desired or expected. CLINICAL INDICATORS: (Providers should not edit this section) The below diagnosis was documented in the record, but is not consistently noted in subsequent documentation. " Head CT on admission revealed no acute changes but very suspicious that he has had a probably acute CVA." Diagnosis: Probably acute CVA Please clarify the following: ( ) The above diagnosis was monitored, evaluated, and/or treated and is a confirmed diagnosis ( ) The above diagnosis was ruled out (x ) The above diagnosis is still a likely, suspected, probable diagnosis ( ) Other, please specify: ( ) Clinically unable to determine COMMENTS: PLEASE ALSO DOCUMENT RESPONSE IN PROGRESS NOTES AND/OR DISCHARGE SUMMARY Use of terms such as suspected, likely, or probable (associated with a specific diagnosis that is being evaluated, monitored, or treated as if it exists) are acceptable and can be restated in the discharge summary if not ruled out. MTDD
[2016-12-31] MEDS: DOCUSATE SODIUM 100 MG CAPSULE PO SCH ×2 (08:58→20:32)
[2016-12-31] MEDS: FINASTERIDE 5 MG TABLET PO SCH (08:58)
[2016-12-31] MEDS: MULTIVITAMIN (CENTRUM) TABLET PO SCH (08:58)
[2016-12-31] MEDS: ASPIRIN EC 325 MG TABLET PO SCH (08:58)
[2016-12-31] MEDS: LEVOTHYROXINE 50 MCG TABLET PO SCH (08:58)
[2016-12-31] MEDS: predniSONE 20 MG TABLET PO SCH (08:58)
[2016-12-31] MEDS: PANTOPRAZOLE 40 MG TABLET PO SCH (08:58)
--- NOTE | 2016-12-31 16:25 | XRay Report ---
XR knee 2V RT Indication: Right knee swelling. Pain. Right knee 2 views: There is a large joint effusion. No acute fracture shown. Minimal 3 compartment osteophyte development is present. Joint spaces are maintained. No dislocation. Impression: Large joint effusion. Given history, septic arthritis cannot be excluded. Minimal 3 compartment osteophytosis. PROCEDURE INTERPRETED AT [facility] DEPARTMENT OF RADIOLOGY Final Report Signed by: Vel Schwab M.D.
[2016-12-31] MEDS ORDERED: LIDOCAINE 1% 50 ML VIAL MISC INJ ONE (18:08)
--- NOTE | 2016-12-31 18:19 | Orthopedic Consult Note ---
History of Present Illness Chief complaint: Right knee effusion History of present illness: Mr. Dyer is a 86 year old male who was admitted for dehydration and failure to thrive. His admission chief complaint was abdominal pain however he is complaining of pain everywhere. The family notes that he had a tendency to drag his right leg since Wednesday. I have previously performed a right hip hemiarthroplasty for displaced femoral neck fracture approximately 6 years ago. His daughter states that he is done well with his hip. The patient has had about 4 strokes since last time I have seen him. He has been using a walker essentially for the last 2 years. He lives at home with his . He has been getting on his mower mowing the yard. He has been relatively functional. He has had several episodes of dehydration this summer. The daughter has asked regarding pain management to minimize use of narcotics. The patient has been afebrile since admission. Exam right lower extremity shows some mild discomfort with internal/external rotation of his hip which seems to be referred to his knee. The patient has a moderately large knee effusion with some mild warmth but no erythema. The patient has severe pain with range of motion of his knee. He is tender about his entire lower extremity. His knee is grossly stable. Radiographs show a large effusion with osteophyte formation. Joint spaces appear to be relatively well-maintained. The patient's white count on his last CBC was 7.5. Impression right knee effusion and pain of unknown etiology Plan: I have advised obtaining a uric acid to check for gout, C-reactive protein and sedimentation rate. I have aspirated his knee using aseptic technique and 1% lidocaine as a local anesthetic. 40 cc of clear yellow fluid was easily obtained from his knee. Fluid will be sent for crystals, cell count and anaerobic aerobic cultures. Based on the fluid I suspect more than likely an osteoarthritic flare. I have started him on Toradol 15 mg IV as needed for 2 days to help minimize IV pain medicine. Home Medications Medication Instructions Recorded Confirmed Type Finasteride [Proscar] 5 mg PO DAILY 12/24/14 12/26/16 History Levothyroxine Tab [Synthroid Tab] 50 mcg PO DAILY 12/24/14 12/26/16 History Multivit-Min/FA/Lycopen/Lutein 1 each PO DAILY 12/24/14 12/26/16 History [Centrum Silver Tablet] Pantoprazole Tab [Protonix Tab] 40 mg PO DAILY 12/24/14 12/26/16 History hydroCHLOROthiazide 12.5 mg PO DAILY 12/24/14 12/26/16 History [Hydrochlorothiazide] Aspirin [Ecotrin] 325 mg PO DAILY 03/17/16 12/26/16 History Allergies Allergy/AdvReac Type Severity Reaction Status Date / Time celecoxib [From Celebrex] AdvReac Nausea Verified 03/26/16 08:55 ROS unobtainable: due to dementia Medical,Surgical,& Family Hx - Medical History Cardio: History of: Hypertension No history of: Pacemaker Neurology: History of: Cerebrovascular Accident, TIA Endocrine: History of: Thyroid Disorder (Hypothryroid) Gastrointestinal: History of: GERD - Surgical History Abdominal Surgeries: Surgical HX of: Hernia Repair Orthopedic Surgeries: Surgical HX of;: Total Hip Replacement (left post fall) - Family History Family History: Reports;: Family Heart Disease, Additional Family History ( Family history is noted for longevity) - Social History Smoking Status: Never smoker Frequency of Alcohol Use: None Exam - Constitutional Vitals: Period Temp Pulse Resp BP Sys/Jeter Pulse Ox Last 24 Hr 96.4 F-97.3 F 83-104 18-21 111-151/61-90 92-98 Results - Labs CBC & BMP: 12/31/16 05:29 12/31/16 05:29 Assessment and Plan (1) Effusion, right knee Status: Acute Current Visit: Yes
[2016-12-31] MEDS: KETOROLAC 15 MG/1 ML VIAL IV PRN (18:46)
[2016-12-31] MEDS: SODIUM CHLORIDE 0.45% 1,000 ML IV SCH (18:47)
[2016-12-31 19:03] LABS: Cholesterol Crystals None Seen /LPF
[2016-12-31 19:14] LABS: Lymphocytes,Synovial Fluid 29 %; Neutrophils,Synovial Fluid 64 %
[2017-01-01] MEDS: KETOROLAC 15 MG/1 ML VIAL IV PRN ×2 (00:15→21:00)
[2017-01-01 05:34] LABS: Basophils % 0.2 % (0.0-0.8); Eosinophils # 0.1 10*3/uL (0.0-0.87); Eosinophils % 0.9 % (0.00-10.9); Hematocrit 32.6 VOL% (42.0-52.0); Hemoglobin 11.7 GM/DL (14.0-18.0); Immature Granulocytes % 0.4 %; Immature Granulocytes Absolute 0.02 #; Lymphocytes # 1.6 10*3/uL (1.4-4.0); Lymphocytes % 28.7 % (21.2-54.2); Mean Corpuscular HGB Conc 35.9 GM/DL (32-36); Mean Corpuscular Hemoglobin 33 PG (27-34); Mean Corpuscular Volume 90.8 FL (87-102); Mean Platelet Volume 10.5 FL (9.6-12.0); Monocytes # 0.6 10*3/uL (0.11-0.8); Monocytes % 10.4 % (1.7-12.7); Neutrophils # 3.4 10*3/uL (1.4-7.4); Neutrophils % 59.4 % (38.7-73.9); Platelet Count 204 T/CUMM (130-400); Red Blood Count 3.59 MC/CUMM (3.8-5.5); Red Cell Distribution Width 12.1 % (9.3-17.3); White Blood Count 5.7 T/CUMM (4-12)
[2017-01-01 06:12] LABS: Calcium 8.8 MG/DL (8.5-10.1); Osmolality,Calculated 283.8 MOS/KG (273-304); Potassium 3.9 MMOL/L (3.5-5.1)
--- NOTE | 2017-01-01 08:22 | Family Practice Progress Note ---
Family Practice - PN: Subj Interval history: Patient is a 86-year-old white male well-known to me admitted with progressive decline. 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 He is progressively gotten weaker was admitted to the emergency room with severe diffuse pain. He has total body pain. He is minimally responsive. Does recognize me this a.m. will not answer questions. Head CT on admission revealed no acute changes but very suspicious that he has had a probably acute CVA. He has not been eating or drinking at present. Family does not want PEG tube placement. He is presently listed as a full code but I will discuss this with family. Lung la are clear to auscultation abdomen is soft but diffusely tender .abdominal CT and other studies were stable. Prognosis is very poor. Probably needs intermediate versus hospice 12/29/16 -patient continues to slowly decline. He is minimally responsive today. Family has committed to do not placed feeding tube. There have been family meeting today about the no CODE STATUS. I spent significant time explaining to and family members. His labs and CTs studies are stable. Strongly recommended he make him a DO NOT RESUSCITATE and either home with hospice or intermediate placement. They will discuss this with family today and make decision. We will otherwise continue present treatment. 12/30/16 -patient is more alert this a.m. Still not eating or drinking. Family is unable to make decision about no CODE STATUS. Spent significant time again with son explaining that unless they place a feeding tube that Mr. Holley is going to continue to decline. Family does not want feeding tube and I agree with this is overall progressive decline. I again spent time expressing that he needs to go to hospice or long-term care and then his prognosis is extremely poor. Son states she understands and again will talk to family members today. Will get social services coordinator involved with discharge. 01/01/17 -patient was seen yesterday but apparently I did not enter a progress note. Patient was admitted with mental confusion and failure to thrive. He has had multiple previous cerebrovascular accidents but did quite well into the last few months. Had a rapid decline in the last several months. Patient initially was very confused and lethargic. He has become much more alert at times. He has not ambulated since admission. It has been hard for me to convince the family that he has in a terminal state. They had wanted him to transfer to [facility] bed but patient cannot follow commands nor ambulate so he does not qualify for this. Patient has some diffuse joint and muscle pain and slight elevation in his sedimentation rate but did not show any response to steroids. He had a effusion on his knee and Dr. Aguilar That yesterday but did not provide any significant relief to his symptoms. Family is finally in agreement to make a disposition with hospice or intermediate. I am awaiting on the family to make arrangements. Could be discharged over the weekend if those arrangements can be made but discussing with daughter this a.m. I do not think they have even communicated with the nursing care facility your home caregiver. field services director working with the family. Exam (Progress Note) - Constitutional Vitals: Period Temp Pulse Resp BP Sys/Jeter Pulse Ox Last 24 Hr 96.3 F-97.8 F 83-90 14-21 111-151/61-90 92-98 Results - Labs CBC & BMP: 01/01/17 04:35 01/01/17 04:35
--- NOTE | 2017-01-01 09:42 | Orthopedic Progress Note ---
Assessment and Plan (1) Effusion, right knee Status: Acute Current Visit: Yes Orthopedics - Subjective Interval history: Mr Dyer is feeling a little better after the aspiration and Toradol. He still mildly tender about his knee. He has a mild effusion. Fluid results show 42 white blood cells with no crystals. Sedimentation rate of 86 and a CRP of 1. Normal serum uric acid. No growth at 12 hours. Impression: Right knee effusion secondary to an osteoarthritic flare Plan: Agree with physical therapy. I doubt that his effusion is secondary to a crystalline arthropathy or an infection. The knee effusion could be possibly from a rheumatologic disorder since his sedimentation rate is elevated at 86 mm. I have discussed this with his family members. Will consist continue to observe the knee. If the knee still giving him problems early next week, I will consider a corticosteroid injection. Exam - Constitutional Vitals: Period Temp Pulse Resp BP Sys/Jeter Pulse Ox Last 24 Hr 96.3 F-97.8 F 83-90 14-20 111-143/61-79 92-98 Results - Labs CBC & BMP: 01/01/17 04:35 01/01/17 04:35
[2017-01-01] MEDS: DOCUSATE SODIUM 100 MG CAPSULE PO SCH ×2 (10:55→21:00)
[2017-01-01] MEDS: FINASTERIDE 5 MG TABLET PO SCH (10:55)
[2017-01-01] MEDS: LEVOTHYROXINE 50 MCG TABLET PO SCH (10:55)
[2017-01-01] MEDS: predniSONE 20 MG TABLET PO SCH (10:55)
[2017-01-01] MEDS: ASPIRIN EC 325 MG TABLET PO SCH (10:55)
[2017-01-01] MEDS: PANTOPRAZOLE 40 MG TABLET PO SCH (10:55)
[2017-01-01] MEDS: MULTIVITAMIN (CENTRUM) TABLET PO SCH (10:55)
[2017-01-01] MEDS: SODIUM CHLORIDE 0.45% 1,000 ML IV SCH (13:10)
[2017-01-01] MEDS ORDERED: SODIUM PHOSPHATE ENEMA 133 ML BOTTLE RECTAL PRN (18:52)
[2017-01-01] MEDS: MAGNESIUM HYDROXIDE SUSP 30 ML UDCUP PO PRN (21:00)
[2017-01-02 06:05] LABS: Basophils % 0.2 % (0.0-0.8); Eosinophils # 0.1 10*3/uL (0.0-0.87); Eosinophils % 1.6 % (0.00-10.9); Hematocrit 31.8 VOL% (42.0-52.0); Hemoglobin 11.7 GM/DL (14.0-18.0); Immature Granulocytes % 0.6 %; Immature Granulocytes Absolute 0.03 #; Lymphocytes # 1.4 10*3/uL (1.4-4.0); Lymphocytes % 26.5 % (21.2-54.2); Mean Corpuscular HGB Conc 36.8 GM/DL (32-36); Mean Corpuscular Hemoglobin 33 PG (27-34); Mean Corpuscular Volume 90.3 FL (87-102); Mean Platelet Volume 10.7 FL (9.6-12.0); Monocytes # 0.5 10*3/uL (0.11-0.8); Monocytes % 10.1 % (1.7-12.7); Neutrophils # 3.1 10*3/uL (1.4-7.4); Platelet Count 197 T/CUMM (130-400); Red Blood Count 3.52 MC/CUMM (3.8-5.5); Red Cell Distribution Width 12.1 % (9.3-17.3); White Blood Count 5.1 T/CUMM (4-12)
[2017-01-02 06:25] LABS: Calcium 8.9 MG/DL (8.5-10.1); Osmolality,Calculated 283.8 MOS/KG (273-304); Potassium 4.1 MMOL/L (3.5-5.1)
--- NOTE | 2017-01-02 08:07 | Internal Med Progress Note ---
Assessment and Plan (1) Dementia Status: Acute Assessment and plan: 86-year-old male admitted to acute care * Diffuse body pain. This has improved * Dementia. Slowly progressing * Plan is to discharge him home early next week with hospice. * Elevated sed rate. Right knee effusion secondary to osteoarthritic flare * Discussed with Current Visit: Yes (2) Abdominal pain Status: Acute Current Visit: Yes Qualifiers: Abdominal location: lower abdomen, unspecified Qualified Code(s): R10.30 - Lower abdominal pain, unspecified (3) Failure to thrive Status: Acute Current Visit: Yes (4) gastroesophageal reflux Status: Chronic Current Visit: No (5) hypertension Status: Chronic Current Visit: No (6) hypothyroid Status: Chronic Current Visit: No (7) previous cerebrovascular accident Status: Chronic Current Visit: No Internal Medicine - PN: Subj Interval history: 86-year-old male with multiple medical problems. He is doing better this morning according to his . He was admitted with diffuse pain. He denies any chest pain or shortness of breath Exam (Progress Note) - Constitutional Vitals: Period Temp Pulse Resp BP Sys/Jeter Pulse Ox Last 24 Hr 97.2 F-98.2 F 79-90 16-22 132-162/71-82 91-95 Exam: Examination: GENERAL: Elderly male who is in no acute distress NECK: Neck is supple. CVS: Regular rate and rhythm. S1 and S2 are normal. RESPIRATORY: Lungs are clear. No rales or rhonchi. ABDOMEN: Soft and nontender. Bowel sounds are present. No hepatosplenomegaly. EXT: No edema. Peripheral pulses are present. CIAIO COUNTER MOLDER: Patient is awake, but confused. He is moving both upper and lower extremities SKIN: Warm and dry. Results - Labs CBC & BMP: 01/02/17 05:01 01/02/17 05:01 Lab Results: I have reviewed the past 24 hour labs
[2017-01-02] MEDS: SODIUM CHLORIDE 0.45% 1,000 ML IV SCH (09:00)
[2017-01-02] MEDS: ACETAMINOPHEN 325 MG TABLET PO PRN ×2 (09:36→21:59)
[2017-01-02] MEDS: FINASTERIDE 5 MG TABLET PO SCH (09:38)
[2017-01-02] MEDS: DOCUSATE SODIUM 100 MG CAPSULE PO SCH ×2 (09:38→21:59)
[2017-01-02] MEDS: MULTIVITAMIN (CENTRUM) TABLET PO SCH (09:38)
[2017-01-02] MEDS: ASPIRIN EC 325 MG TABLET PO SCH (09:38)
[2017-01-02] MEDS: LEVOTHYROXINE 50 MCG TABLET PO SCH (09:38)
[2017-01-02] MEDS: PANTOPRAZOLE 40 MG TABLET PO SCH (09:39)
[2017-01-02] MEDS: predniSONE 20 MG TABLET PO SCH (09:39)
[2017-01-02] MEDS: MAGNESIUM HYDROXIDE SUSP 30 ML UDCUP PO PRN (09:40)
[2017-01-03] MEDS: SODIUM CHLORIDE 0.45% 1,000 ML IV SCH ×2 (03:22→07:32)
[2017-01-03 06:57] LABS: Osmolality,Calculated 282.7 MOS/KG (273-304)
[2017-01-03 07:46] LABS: Free T4 (Free Thyroxine) 1.67 NG/DL (0.76-1.46); Thyroid Stimulating Hormone 1.5 uIU/ml (0.358-3.74)
[2017-01-03] MEDS: PANTOPRAZOLE 40 MG TABLET PO SCH (10:30)
[2017-01-03] MEDS: LEVOTHYROXINE 50 MCG TABLET PO SCH (10:30)
[2017-01-03] MEDS: predniSONE 20 MG TABLET PO SCH (10:30)
[2017-01-03] MEDS: ASPIRIN EC 325 MG TABLET PO SCH (10:30)
[2017-01-03] MEDS: FINASTERIDE 5 MG TABLET PO SCH (10:31)
[2017-01-03] MEDS: DOCUSATE SODIUM 100 MG CAPSULE PO SCH ×2 (10:31→21:07)
[2017-01-03] MEDS: MULTIVITAMIN (CENTRUM) TABLET PO SCH (10:31)
--- NOTE | 2017-01-03 13:34 | Family Practice Progress Note ---
Family Practice - PN: Subj Interval history: PCP: Dr. [facility] on case : Orthopedics, surgery, pt admitted for dementia, failure to thrive, Is DNR,also noted to have right knee effusion Has h/o hypothyroid, HTN , Hyperlipidemia, Dementia, H/o CVA, GERD, pt seen and examined on second floor Accompanied by daughter, Ms. Valles. Most of the history obtained from, the caregiver, patient is sleeping, As per her, patient was restless last night, and sleeping since this a.m. she has also noticed he had some difficulty swallowing. Did not have breakfast, she has noticed the patient has been moving the right knee, status post joint fluid aspiration. on IVF , ongoing, no nausea, vomiting , chest pain , SOB , headaches or dizziness, as per the caregiver, After waking up the patient, patient does follow simple commands. No overnight events reported by the nurse, Exam (Progress Note) - Constitutional Vitals: Period Temp Pulse Resp BP Sys/Jeter Pulse Ox Last 24 Hr 96.9 F-99.2 F 76-93 18-28 133-157/68-91 94-97 Exam: Examination: Examined the patient after waking him up GENERAL: Awake, follows simple commands, in no acute distress , fatigued , elderly male pt, lying in the bed, HEENT: Has decreased hearing,PERRLA. EOMI. Mucous membranes are moist. NECK: Neck is supple. No JVD. No carotid bruit. No thyromegaly. CVS: Regular rate and rhythm. S1 and S2 are normal. RESPIRATORY: Clear to ausculation bilaterally , No wheezes, rales or rhonchi. ABDOMEN: Soft and nontender. Bowel sounds are present. No hepatosplenomegaly. EXT: No edema. Right knee exam: Grossly no swelling, no erythema noted, mildly tender. TIRE MECHANIC: Patient is awake, follows simple commands Results - Labs CBC & BMP: 01/02/17 05:01 01/03/17 05:49 Lab Results: I have reviewed the past 24 hour labs Labs: Synovial fluid no growth from 12/31/2016 Blood Cx from no growth from 12/26/2016 for 5 days TSH 1.5, free T4 1.67 - Impressions Right knee x-ray from 12/26/2016 Impression: Large joint effusion. Given history, septic arthritis cannot be excluded. Minimal [address] compartment [address]. Head CT from admission Impression: No acute intracranial pathology. 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 Assessment and Plan (1) Failure to thrive Status: Acute Assessment and plan: Continue IV fluids, will get swallow eval, 2. Dementia, follow recommendations, 3. Right knee effusion, improved follow orthopedics recommendation 4. GERD, chronic stable 5.HTN stable, continue current antihypertensives, 6. Hypothyroid, continue Synthroid Current Visit: Yes (2) Dementia Status: Chronic Current Visit: Yes (3) Effusion, right knee Status: Acute Current Visit: Yes (4) gastroesophageal reflux Status: Chronic Current Visit: Yes (5) hypertension Status: Chronic Current Visit: No (6) hypothyroid Status: Chronic Current Visit: No (7) previous cerebrovascular accident Status: Chronic Current Visit: Yes (8) Abdominal pain Status: Resolved Current Visit: Yes Qualifiers: Abdominal location: lower abdomen, unspecified Qualified Code(s): R10.30 - Lower abdominal pain, unspecified
[2017-01-03] MEDS: ACETAMINOPHEN 325 MG TABLET PO PRN (21:05)
[2017-01-04] MEDS: SODIUM CHLORIDE 0.45% 1,000 ML IV SCH (00:30)
[2017-01-04 06:52] LABS: Basophils % 0.3 % (0.0-0.8); Eosinophils # 0.2 10*3/uL (0.0-0.87); Hematocrit 33.3 VOL% (42.0-52.0); Hemoglobin 12.1 GM/DL (14.0-18.0); Immature Granulocytes % 0.3 %; Immature Granulocytes Absolute 0.02 #; Lymphocytes # 1.8 10*3/uL (1.4-4.0); Lymphocytes % 27.6 % (21.2-54.2); Mean Corpuscular HGB Conc 36.3 GM/DL (32-36); Mean Corpuscular Hemoglobin 33 PG (27-34); Mean Platelet Volume 10.4 FL (9.6-12.0); Monocytes # 0.8 10*3/uL (0.11-0.8); Monocytes % 11.4 % (1.7-12.7); Neutrophils # 3.8 10*3/uL (1.4-7.4); Neutrophils % 57.4 % (38.7-73.9); Platelet Count 216 T/CUMM (130-400); Red Cell Distribution Width 12.2 % (9.3-17.3); White Blood Count 6.6 T/CUMM (4-12)
[2017-01-04 07:15] LABS: Calcium 9.2 MG/DL (8.5-10.1); Magnesium 2.3 MG/DL (1.8-2.4); Osmolality,Calculated 279.5 MOS/KG (273-304); Phosphorous 2.6 MG/DL (2.5-4.9); Potassium 3.9 MMOL/L (3.5-5.1)
[2017-01-04] MEDS ORDERED: LEVOTHYROXINE 75 MCG TABLET PO SCH (08:00)
--- NOTE | 2017-01-04 08:12 | Family Practice Progress Note ---
Family Practice - PN: Subj Interval history: Patient is a 86-year-old white male well-known to me admitted with progressive decline. 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 He is progressively gotten weaker was admitted to the emergency room with severe diffuse pain. He has total body pain. He is minimally responsive. Does recognize me this a.m. will not answer questions. Head CT on admission revealed no acute changes but very suspicious that he has had a probably acute CVA. He has not been eating or drinking at present. Family does not want PEG tube placement. He is presently listed as a full code but I will discuss this with family. Lung la are clear to auscultation abdomen is soft but diffusely tender .abdominal CT and other studies were stable. Prognosis is very poor. Probably needs intermediate versus hospice 12/29/16 -patient continues to slowly decline. He is minimally responsive today. Family has committed to do not placed feeding tube. There have been family meeting today about the no CODE STATUS. I spent significant time explaining to and family members. His labs and CTs studies are stable. Strongly recommended he make him a DO NOT RESUSCITATE and either home with hospice or intermediate placement. They will discuss this with family today and make decision. We will otherwise continue present treatment. 12/30/16 -patient is more alert this a.m. Still not eating or drinking. Family is unable to make decision about no CODE STATUS. Spent significant time again with son explaining that unless they place a feeding tube that Mr. Holley is going to continue to decline. Family does not want feeding tube and I agree with this is overall progressive decline. I again spent time expressing that he needs to go to hospice or long-term care and then his prognosis is extremely poor. Son states she understands and again will talk to family members today. Will get rn social work involved with discharge. 01/01/17 -patient was seen yesterday but apparently I did not enter a progress note. Patient was admitted with mental confusion and failure to thrive. He has had multiple previous cerebrovascular accidents but did quite well into the last few months. Had a rapid decline in the last several months. Patient initially was very confused and lethargic. He has become much more alert at times. He has not ambulated since admission. It has been hard for me to convince the family that he has in a terminal state. They had wanted him to transfer to [facility] bed but patient cannot follow commands nor ambulate so he does not qualify for this. Patient has some diffuse joint and muscle pain and slight elevation in his sedimentation rate but did not show any response to steroids. He had a effusion on his knee and Dr. Aguilar That yesterday but did not provide any significant relief to his symptoms. Family is finally in agreement to make a disposition with hospice or intermediate. I am awaiting on the family to make arrangements. Could be discharged over the weekend if those arrangements can be made but discussing with daughter this a.m. I do not think they have even communicated with the nursing care facility your home caregiver. director of cardiopulmonary services working with the family. 01/04/17 -patient remains very weak. Does not respond we will answer questions appears. Family insists that he is responding appropriately and is much improved. Still not using his lower extremities but is moving his upper extremities appear. They want him reevaluated for swing bed. I thought we had solved this on Wednesday and the plan was for discharged with hospice. Daughter insists that he is doing so much better that he should qualify for swing bed. I have discussed requirements for swing bed including mental status. At their insistence will ask rn social work to discuss with family. If he qualifies for some screening bed that will be fine if not we need to make disposition. I do not see a lot of change overall Exam (Progress Note) - Constitutional Vitals: Period Temp Pulse Resp BP Sys/Jeter Pulse Ox Last 24 Hr 96.4 F-97.7 F 73-94 18-20 142-154/78-94 95-98 Results - Labs CBC & BMP: 01/04/17 05:51 01/04/17 05:51
[2017-01-04] MEDS: MULTIVITAMIN (CENTRUM) TABLET PO SCH (10:22)
[2017-01-04] MEDS: DOCUSATE SODIUM 100 MG CAPSULE PO SCH (10:24)
[2017-01-04] MEDS: ASPIRIN EC 325 MG TABLET PO SCH (10:24)
[2017-01-04] MEDS: PANTOPRAZOLE 40 MG TABLET PO SCH (10:24)
[2017-01-04] MEDS: FINASTERIDE 5 MG TABLET PO SCH (10:25)
[2017-01-04] MEDS: predniSONE 20 MG TABLET PO SCH (10:25)
--- NOTE | 2017-01-04 13:25 | Orthopedic Progress Note ---
Assessment and Plan (1) Effusion, right knee Status: Acute Current Visit: Yes Orthopedics - Subjective Interval history: Alert. His family states that he has not complained much about his knee. He has been moving his legs much better. Knee effusion is about resolved. His knee is nontender. Knee cultures show no growth. Plan: Reconsult with problems. Exam - Constitutional Vitals: Period Temp Pulse Resp BP Sys/Jeter Pulse Ox Last 24 Hr 96.4 F-98.8 F 73-94 18-20 142-154/78-94 95-98 Results - Labs CBC & BMP: 01/04/17 05:51 01/04/17 05:51
--- NOTE | 2017-01-04 14:10 | Discharge Summary ---
Hospital Course - Hospital Course Hospital Course: Patient is a 86-year-old white male well-known to me admitted with progressive decline. 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 He is progressively gotten weaker was admitted to the emergency room with severe diffuse pain. He has total body pain. He is minimally responsive. In view of the degree of symptoms patient was admitted for evaluation and therapy HOSPITAL COURSE - the patient was admitted to hospital lab and x-ray studies obtained. He was started on physical therapy occupational and speech therapy. He remained to minimally responsive at times more alerted others. He had very poor oral intake. Patient was never able to stand throughout admission. He was evaluated extensively. He complained of diffuse joint pain in sedimentation rate was slightly elevated at 60. Given a trial of Solu- Medrol and prednisone with no relief. Subsequently noted to have a effusion and swelling in his dyspnea. He was seen in consultation by Dr. Aguilar. He aspirated and injected the knee. This did not provide any significant relief to his overall situation. Patient is shown minimal improvement to therapy. He' s been evaluated for swing bed rehabilitation etc. but does not qualify his present state. His family has finally decided to take him home under home health. Home health will provide information in reference to his overall health care needs. I will see him clinic if patient improves. Family is aware of the very poor prognosis. Discharge to home care and have home health: His status report. Call or return to emergency room if needed. Diagnosis - Discharge Diagnosis (1) Failure to thrive Status: Acute (2) Dementia Status: Chronic (3) gastroesophageal reflux Status: Chronic (4) previous cerebrovascular accident Status: Chronic (5) Hyponatremia Status: Acute (6) Anemia Status: Chronic (7) benign prostatic hypertrophy Status: Chronic (8) hypothyroid Status: Chronic Specialty Discharge - Follow Up or Referrals Follow up with: Esteban Peraza DO [Primary Care Provider] - (Home health will provide follow information on this patient ) Discharge Plan - Discharge Data Disposition: Hospice - Home Condition at Discharge: Guarded Discharge Diet: other (.pureed) Activity: increase activity as tolerated Weight Bearing at Discharge: toe touch Contact your physician if you experience:: fever over 101, Shortness of breath - Discharge Medications Continue Pantoprazole Tab [Protonix Tab] 40 mg PO DAILY hydroCHLOROthiazide [Hydrochlorothiazide] 12.5 mg PO DAILY Finasteride [Proscar] 5 mg PO DAILY Multivit-Min/FA/Lycopen/Lutein [Centrum Silver Tablet] 1 each PO DAILY Aspirin [Ecotrin] 325 mg PO DAILY Levothyroxine Tab [Synthroid Tab] 50 mcg PO DAILY #30 tablet - Follow Up or Referral Follow Up: Esteban Peraza DO [Primary Care Provider] - (Home health will provide follow information on this patient ) - Forms/Instructions Exam - Constitutional Vitals: Period Temp Pulse Resp BP Sys/Jeter Pulse Ox Last 24 Hr 96.4 F-98.8 F 73-94 18-20 142-154/78-94 95-98 General appearance: under weight, disheveled - Head Head exam: Present: normal inspection - ENT ENT exam: Present: normal exam - Neck Neck exam: Present: normal inspection - Respiratory Respiratory exam: Present: clear to auscultation bilaterally - Cardiovascular Cardiovascular exam: Present: irregular rhythm - GI/Abdominal GI/Abdominal exam: Present: normal bowel sounds, soft - Extremities Exam Extremities exam: Present: other (poor range of motion of her extremities with limited range of motion lower extremity) - Back Exam Back exam: Present: normal inspection - Neurological Exam Neurological exam: Present: altered, other (intermittently respond to questions. Most the time he is sleeping or very lethargic) - Psychiatric Psychiatric exam: Present: flat affect, other (minimally responsive at times) - Skin Skin exam: Present: normal color Discharge Results Procedures and tests throughout hospitalization: Pending Orders 01/05/17 04:00 Basic Metabolic Panel IN AM Comp Blood Count Auto Diff IN AM Labs on day of discharge: Labs from last 24 hours 01/04/17 01/04/17 05:51 05:51 WBC 6.6 RBC 3.70 L Hgb 12.1 L Hct 33.3 L MCV 90.0 MCH 33 MCHC 36.3 H RDW 12.2 Plt Count 216 MPV 10.4 Neut % (Auto) 57.4 Lymph % (Auto) 27.6 Parmer % (Auto) 11.4 Eos % (Auto) 3.0 Baso % (Auto) 0.3 Neut # (Auto) 3.8 Lymph # (Auto) 1.8 Parmer # (Auto) 0.8 Eos # (Auto) 0.2 Baso # (Auto) 0.0 Immature Gran % 0.3 Nucleated RBC % 0.0 Immature Gran # 0.02 Nucleated RBCs # 0.00 Immature Plt Fraction 0.0 Sodium 139 Potassium 3.9 Chloride 108 H Carbon Dioxide 22 Anion Gap 12.9 BUN 22 H Creatinine 1.10 GFR Calculation 67 BUN/Creatinine Ratio 20.00 Glucose 105 Calculated Osmolality 279.5 Calcium 9.2 Phosphorus 2.6 Magnesium 2.3 DS: Provider Date of admission: 12/26/16 11:44 Primary care physician: Esteban Peraza DO Attending physician on admission: Esteban Peraza DO Consults: 12/26/16 11:44 Consult to Case Mgmt/Social Srvs [CONS] Routine Reason for Case Mgmt/Social Srvs: Discharge Planning Consult Comment: hospital bed 12/26/16 17:45 Consult to Physical Therapy [CONS] Routine Reason for Physical Therapy: Evaluate and Treat 12/27/16 11:21 Consult to Case Mgmt/Social Srvs [CONS] Routine Reason for Case Mgmt/Social Srvs: Equipment Consult Comment: HIgh Rise for toliet 12/31/16 14:12 Consult to Physician [CONS] Routine Comment: Consulting Provider: Jermaine Aguilar Jr. Consult to Specialist Group: Orthopedic When should Consulting Provider be notified: Now Person Notified: WINSTON Time Notified: 14:50 01/03/17 08:45 Consult to Case Mgmt/Social Srvs [CONS] Routine Reason for Case Mgmt/Social Srvs: Swingbed/SNF/Senior Living Hospice Referral Consult Comment: Swing bed in [place] Discharging clinician: Esteban Peraza DO
[2017-01-04 16:52] VITALS: BP 134/84
== END 2017-01-04 16:55 | disposition home health service (06) | DRG 682 ==
LOC: EDBD → EDSEX → EDUNIT# → N.ED 08:19 → N.EDINP 11:44 → N.2E 13:15
PROVIDERS: ADMIT Family Medicine; ATTEND Family Medicine